=== PATIENT | female | born 1925 | race Caucasian/White ===

== ENCOUNTER 2016-06-25 16:47 | Emergency (ER) | payer OTHER ==
[2016-06-25 16:57] VITALS: RESP 16; TEMP 97.8
[2016-06-25] MEDS ORDERED: CloNIDine Tab 0.1 MG TABLET PO ONE (17:06)
--- NOTE | 2016-06-25 17:10 | PDOC ---
Gen Adult / Medical Screen HPI - General Chief Complaint: General Medical Stated Complaint: hign blood pressure Date Seen by Provider: 06/25/16 Time Seen by Provider: 17:07 Source: POSITIVE: Patient Exam Limitations: POSITIVE: No limitations Nurse's Notes Reviewed & Considered: Yes - Indicators Temperature Between 95 and 101 Degrees: Yes Respirations Between 12 and 20: Yes Blood Pressure Between 100-165 (sys) and 60-100 (caceres): No Pulse Range Between 60-105 (100 for age > 60 years): Yes Severe Pain (Greater than 5/10 Reported): No Chest or Abdominal Pain: No Inability to Walk: No Pt Reports Active High Risk Cond. (TB/Hepatitis/HIV/Chemo): No Abnormal Mental Status: No - History of Present Illness Initial Comments: The patient comes in today worried about prior. The patient took her blood pressure at home and found it to be 209 systolic and came in for further evaluation. She denies any nausea vomiting or diarrhea, no headache, no blurry vision, no sore throat, chest pain shortness of breath, no fever chills or sweats, no hematuria dysuria. Timing: REPORTS: Intermittent Duration: Unknown Similar Symptoms Previously: Yes Recent Care Received: REPORTS: Denies Any Prior Injuries Related to Current Complaint?: No - Patient Home Medications Home Medications: Home Medications Magnesium Sr 7 meq PO QD #90 02/10/12 Ascorbate Calcium [Vitamin C] 1 tab PO QHS #90 tab 11/15/13 Aspirin 81 mg PO QD tab 08/21/15 Ubidecarenone [Co Q-10] 400 mg PO DAILY cap 08/21/15 Furosemide [Lasix] 0.5 - 1 tab ORAL BID #180 tab 10/22/15 Gabapentin 1 cap PO QD #90 cap 10/22/15 Omeprazole 1 cap PO DAILY #90 cap 10/22/15 Pravastatin Sodium [Pravachol] 1 tab PO QHS #90 tab 10/22/15 Quinapril HCl 1 tab PO BID #180 tab 10/22/15 Warfarin Sodium 1.5 tab PO DAILY #135 tab 10/22/15 Cholecalciferol (Vitamin D3) [Vitamin D3] 1 cap PO DAILY cap 04/27/16 Estrogens, Conj Vaginal Cream [Premarin Vaginal Cream] 1 gm VAGINAL DAILY #3 tube 04/27/16 - Patient Allergies Allergies/Adverse Reactions: Allergies Allergy/AdvReac Type Severity Reaction Status Date / Time sulfamethoxazole Allergy Mild Chest Verified 06/25/16 16:49 [From Bactrim] pressure Past Medical History - heen HEENT History: Denies History Additional HEENT History: wears RX glasses, corneal implants Cardiovascular History: Hypertension, CHF, Arrhythmia Additional Cardiovasular History: A FIB/ AND LEFT SIDED HEART FAILURE Respiratory History: Denies History Gastrointestinal History: GERD Genitourinary History: Denies History Additional Genitourinary History: recent UTI Endocrine History: Denies History Musculoskeletal History: Denies History Prosthesis or Implant: No Neurological History: Denies History Blood Disorders: Denies History Psychiatric History: Denies History History of Sexually Transmitted Diseases: No Cancer History: Denies History In Past Year Been Physically Harmed or Verbally Threatened: No History of MDRO: No History of Other Communicable Diseases: No Tobacco Use: Never Smoker Alcohol Use: None Substance Use Type: None Previous Surgical History: Yes Anesthesia Reactions: No Malignant Hyperthermia: No Significant Family History: Heart disease, Cancer ROS - Limitations ROS Limitations: No Limitations Constitution: REPORTS: Denies Symptoms Cardiovascular: REPORTS: Denies Cardiac Symptoms Respiratory: REPORTS: Denies Resp Symptoms Neurological: REPORTS: Denies Neuro Symptoms Gastrointestinal: REPORTS: Denies GI Symptoms Endocrine: REPORTS: Denies Symptoms Musculoskeletal: REPORTS: Denies MS Symptoms Genitourinary: REPORTS: Denies Symptoms Eyes: REPORTS: Denies Symptoms ENT: REPORTS: Denies Symptoms Skin: REPORTS: Denies Skin Symptoms Lympathic: REPORTS: Denies Lympathic Symptoms Immunologic: POSITIVE: Denies Symptoms Psychiatric: POSITIVE: Denies Psych Symptoms Gen Adult/Medical Screen Exam - General Appearance General Appearance: POSITIVE: Alert, Cooperative, No Acute Distress, No Evidence of Trauma - HEENT HEENT: POSITIVE: Head Inspection Nml, Eyes Inspection Nml, Ears Inspection Nml, Nose Inspection Nml, Oral/Dental Inspect. Nml, Pharynx Inspect. Nml, PERRL, EOMI - Pupils Pupil Size: 5 mm: Bilateral - Neck Neck: POSITIVE: Normal Inspection, Thyroid Normal - Respiratory Respiratory: POSITIVE: No Respiratory Distress, Breath Sounds Normal, Chest Non- Tender - Cardiovascular Cardiovascular: POSITIVE: Regular Rate & Rhythm, No Murmur, No Gallop, PMI Normal Peripheral Pulses: Radial (R): 3+, Radial (L): 3+ - Abdomen Abdomen: Soft: (All Quadrants), Normal Bowel Sounds: (All Quadrants), Denies Tenderness: (All Quadrants) - Back Back: POSITIVE: Normal Inspection - Neurological / Psychological Mental Status: POSITIVE: Mood Normal, Affect Normal Orientation: POSITIVE: Oriented x 3 Reflexes: Patellar (R): 3+, Patellar (L): 3+, Radial (R): 3+, Radial (L): 3+ - Skin Skin: POSITIVE: Normal Color, Warm, Dry, No Rash - Extremities Extremity: Non-Tender: (All Extremities), Normal ROM: (All Extremities), Normal Inspection: (All Extremities) Procedures - Laceration/Wound Repair Did patient have a laceration repair: No Gen Adlt/Medical Scrn Progress - Results Reviewed by me Lab Results Reviewed: Yes Lab Results:: Laboratory Results 06/25/16 Range/Units 17:12 WBC 6.19 (4.8-10.8) 10^3/uL RBC 3.70 L (4.20-5.40) 10^6/uL Hgb 12.5 (12.0-16.0) g/dL Hct 36.6 L (37.0-47.0) % MCV 98.9 (81-99) FL MCH 33.8 H (27-31) PG MCHC 34.2 (33-37) g/dL RDW Std Deviation 46.5 (39-50) fL RDW Coeff of Cosme 13.4 (11.5-14.5) % Plt Count 238 (140-350) 10*3/uL MPV 9.1 (7.4-12.2) FL Immature Gran % (Auto) 0.2 (0-5) % Neut % (Auto) 50.1 (50-80) % Lymph % (Auto) 38.1 (10-50) % [place] % (Auto) 8.7 (5-15) % Eos % (Auto) 2.4 (0-8) % Baso % (Auto) 0.5 (0-1) % Immature Gran # (Auto) 0.01 10*3/UL Neut # (Auto) 3.10 10*3/UL Lymph # (Auto) 2.36 10*3/uL [place] # (Auto) 0.54 (0.3-0.8) 10*3/UL Eos # (Auto) 0.15 10*3/UL Baso # (Auto) 0.03 10*3/UL WBC Morphology Comment Normal morphology (NORM) Plt Morphology Comment Normal morphology (NORM) RBC Morph Comment Normal morphology (NORM) PT 26.8 H (9.7-11.4) secs INR 2.55 (0.00-5.90) N/A Sodium 134 L (135-145) meq/L Potassium 4.2 (3.8-5.2) meq/L Chloride 97 L (98-112) meq/L Carbon Dioxide 25 (23-33) meq/L Anion Gap 12 (5-20) BUN 23 H (7-22) mg/dL Creatinine 1.1 (0.50-1.20) mg/dL Estimated GFR (>60 ml/min/1.73m(2)) BUN/Creatinine Ratio 20.90 H (6-20) Glucose 108 (78-110) mg/dL Calculated Osmolality 282.0 (267-292) mOsm/kg Calcium 9.5 (8.7-10.7) mg/dL Magnesium 2.1 (1.6-2.4) mg/dL Total Bilirubin 0.4 (0.3-1.2) mg/dL AST 30 (8-39) IU/L ALT 36 (9-52) IU/L Alkaline Phosphatase 61 (38-126) IU/L Total Protein 7.9 (6.1-8.0) g/dL Albumin 4.6 (3.5-4.8) g/dL Globulin 3.3 (2.50-4.10) g/dL Albumin/Globulin Ratio 1.30 (1.3-2.0) mg/g - Patient's Progress Pain Medication Addressed: POSITIVE: Not Applicable Re-Examine Time: 17:54 Status: POSITIVE: Improved MDM / ED Course: Patient brought to the emergency department, examined, blood drawn and sent to the lab for studies. She received 0.1 mg of clonidine. Laboratory findings: INR shows adequately anticoagulated, remainder of the upper findings are unremarkable. Assessment: Hypertension Plan: Discharge home and follow-up with her primary care physician for evaluation of her medications. - Consult Counseled: POSITIVE: Patient, RE: Lab Results, RE: DX, RE: Need for F/U Patient Care Time - Estimated PCT Patient Care Time (In Minutes): 15 Vital Signs - Recent Vital Signs Vital Signs: Vital Signs (Last 8 hours) Temp Pulse Resp BP Pulse Ox 06/25/16 17:51 182/79 06/25/16 16:52 97.8 F 76 16 225/92 96 - VS Reviewed Vital Signs Reviewed: Yes Discharge Clinical Impression: High blood pressure Discharge Disposition: Discharged to Home Condition: Stable
[2016-06-25 17:19] LABS: BASOPHILS # (AUTO) 0.03 10*3/UL; BASOPHILS % (AUTO) 0.5 % (0-1); EOSINOPHILS % (AUTO) 2.4 % (0-8); HEMATOCRIT 36.6 % (37.0-47.0); HEMOGLOBIN 12.5 g/dL (12.0-16.0); IMM GRAN % (AUTO) 0.2 % (0-5); IMM GRAN# (AUTO) 0.01 10*3/UL; LYMPHOCYTES # (AUTO) 2.36 10*3/uL; LYMPHOCYTES % (AUTO) 38.1 % (10-50); MEAN CORPUSCULAR HEMOGLOBIN 33.8 PG (27-31); MEAN CORPUSCULAR HGB CONC 34.2 g/dL (33-37); MEAN PLATELET VOLUME 9.1 FL (7.4-12.2); MONOCYTES # (AUTO) 0.54 10*3/UL (0.3-0.8); MONOCYTES % (AUTO) 8.7 % (5-15); NEUTROPHILS % (AUTO) 50.1 % (50-80); RDW COEFFICIENT OF VARIATION 13.4 % (11.5-14.5); WHITE BLOOD COUNT 6.19 10^3/uL (4.8-10.8)
[2016-06-25 17:24] LABS: PLATELET MORPHOLOGY COMMENT NORMAL MORPHOLOGY (NORM)
[2016-06-25 17:28] LABS: BILIRUBIN,TOTAL 0.4 mg/dL (0.3-1.2); BUN/CREATININE RATIO 20.9 (6-20); CALCIUM 9.5 mg/dL (8.7-10.7); CREATININE 1.1 mg/dL (0.50-1.20); MAGNESIUM 2.1 mg/dL (1.6-2.4); POTASSIUM 4.2 meq/L (3.8-5.2); TOTAL PROTEIN 7.9 g/dL (6.1-8.0)
[2016-06-25 17:33] LABS: PROTHROMBIN TIME 26.8 secs (9.7-11.4)
[2016-06-25 18:06] LABS: FREE T4 (FREE THYROXINE) 0.93 ng/dL (0.93-1.71)
== END 2016-06-25 18:01 | disposition home or self-care (01) ==
LOC: ER 16:47
DX: I10 Essential (primary) hypertension (principal)
CPT/HCPCS: 80053; 83735; 84439; 84443; 85025; 85610; 99282

== ENCOUNTER → 2016-06-30 | Outpatient (CLI) | payer OTHER | LOC: MMPC 09:00 | PROVIDERS: ATTEND Nurse Practitioner Family | DX: Z79.01 Long term (current) use of anticoagulants (principal); Z51.81 Encounter for therapeutic drug level monitoring; I48.91 Unspecified atrial fibrillation | CPT/HCPCS: 85610 ==

== ENCOUNTER → 2016-07-05 | Outpatient (CLI) | payer OTHER | LOC: MMPC 11:11 | PROVIDERS: ATTEND Nurse Practitioner | DX: B02.9 Zoster without complications (principal); I10 Essential (primary) hypertension | CPT/HCPCS: 99214; G0463 ==

== ENCOUNTER → 2016-07-12 | Outpatient (CLI) | payer OTHER | LOC: MMPC 11:11 | PROVIDERS: ATTEND Nurse Practitioner | DX: I10 Essential (primary) hypertension (principal); B02.9 Zoster without complications | CPT/HCPCS: 99213; G0463 ==

== ENCOUNTER → 2016-07-25 | Outpatient (CLI) | payer OTHER | LOC: MMPC 09:00 | PROVIDERS: ATTEND Nurse Practitioner Family | DX: Z79.01 Long term (current) use of anticoagulants (principal); Z51.81 Encounter for therapeutic drug level monitoring; I48.91 Unspecified atrial fibrillation | CPT/HCPCS: 85610 ==

== ENCOUNTER → 2016-08-01 | Outpatient (CLI) | payer OTHER ==
[2016-08-01 10:52] LABS: BILIRUBIN,URINE NEGATIVE (NEG); CLARITY,URINE CLEAR (CLEAR); GLUCOSE, URINE (UA) NEGATIVE (NEG); LEUKOCYTE ESTERASE ,URINE MODERATE (NEG); NITRATE,URINE NEGATIVE (NEG); OCCULT BLOOD,URINE SMALL (NEG); PH,URINE 5.5 (5.0-8.5); PROTEIN,URINE NEGATIVE (NEG); UROBILINOGEN,URINE 0.2 mg/dL (0.2)
[2016-08-01 10:56] LABS: URINE SAMPLE TYPE CLEAN CATCH URINE
[2016-08-01 10:57] LABS: BACTERIA,URINE MODERATE; WBC,URINE 40-50
== END ==
LOC: LAB 10:37
PROVIDERS: ATTEND Internal Medicine
DX: R31.9 Hematuria, unspecified (principal); R82.99 Other abnormal findings in urine
CPT/HCPCS: 81001; 87088

== ENCOUNTER 2016-08-03 05:23 | Emergency (ER) | payer OTHER ==
[2016-08-03] MEDS ORDERED: Sodium Chloride 0.9% 1,000 ML PRIMARY IV ONE (06:00)
[2016-08-03] MEDS ORDERED: NORMAL SALINE 10 ML SYRINGE FLUSH IVP PRN (06:00)
[2016-08-03 06:08] VITALS: RESP 22; TEMP 97.1
[2016-08-03 06:10] LABS: BASOPHILS # (AUTO) 0.03 10*3/UL; BASOPHILS % (AUTO) 0.5 % (0-1); EOSINOPHILS % (AUTO) 1.4 % (0-8); HEMATOCRIT 38.7 % (37.0-47.0); HEMOGLOBIN 13.4 g/dL (12.0-16.0); IMM GRAN % (AUTO) 0.3 % (0-5); IMM GRAN# (AUTO) 0.02 10*3/UL; LYMPHOCYTES # (AUTO) 1.88 10*3/uL; LYMPHOCYTES % (AUTO) 32.8 % (10-50); MEAN CORPUSCULAR HEMOGLOBIN 33.6 PG (27-31); MEAN CORPUSCULAR HGB CONC 34.6 g/dL (33-37); MEAN PLATELET VOLUME 9.1 FL (7.4-12.2); MONOCYTES # (AUTO) 0.41 10*3/UL (0.3-0.8); MONOCYTES % (AUTO) 7.1 % (5-15); NEUTROPHILS # (AUTO) 3.32 10*3/UL; NEUTROPHILS % (AUTO) 57.9 % (50-80); RDW COEFFICIENT OF VARIATION 13.7 % (11.5-14.5); RED BLOOD COUNT 3.99 10^6/uL (4.20-5.40); WHITE BLOOD COUNT 5.74 10^3/uL (4.8-10.8)
[2016-08-03 06:11] LABS: BILIRUBIN,URINE NEGATIVE (NEG); CLARITY,URINE CLEAR (CLEAR); GLUCOSE, URINE (UA) NEGATIVE (NEG); LEUKOCYTE ESTERASE ,URINE NEGATIVE (NEG); NITRATE,URINE NEGATIVE (NEG); OCCULT BLOOD,URINE SMALL (NEG); PLATELET MORPHOLOGY COMMENT NORMAL MORPHOLOGY (NORM); PROTEIN,URINE NEGATIVE (NEG); UROBILINOGEN,URINE 0.2 EU/dL (0.2)
[2016-08-03 06:14] LABS: URINE SAMPLE TYPE CLEAN CATCH URINE
[2016-08-03 06:17] LABS: RBC,URINE 0-2 /hpf; WBC,URINE 0-1
[2016-08-03 06:18] LABS: PROTHROMBIN TIME 26.7 secs (9.7-11.4)
[2016-08-03 06:21] LABS: ASPARTATE AMINO TRANSFERASE 36 IU/L (8-39); BILIRUBIN,TOTAL 0.9 mg/dL (0.3-1.2); BLOOD UREA NITROGEN 17 mg/dL (7-22); BUN/CREATININE RATIO 18.88 (6-20); CALCIUM 9.3 mg/dL (8.7-10.7); CHLORIDE 96 meq/L (98-112); CREATININE 0.9 mg/dL (0.50-1.20); GLUCOSE 118 mg/dL (78-110); MAGNESIUM 1.9 mg/dL (1.6-2.4); POTASSIUM 4.2 meq/L (3.8-5.2); SODIUM 128 meq/L (135-145); TOTAL PROTEIN 7.9 g/dL (6.1-8.0)
[2016-08-03 06:22] LABS: C-REACTIVE PROTEIN < 0.5 mg/dL (0.0-0.9)
--- NOTE | 2016-08-03 06:27 | EKG ---
[address] [address] Measurements Intervals [place] Rate: 66 P: 66 CT: 192 QRS: 15 QRSD: 96 T: 57 QT: 392 QTc: 405 Interpretive Statements SINUS RHYTHM No previous ECG available for comparison Electronically Signed On 08-03-16 13:59:40 MST by Raphael Cortes [email or web address]
--- NOTE | 2016-08-03 06:35 | PDOC ---
General Adult HPI - General Chief Complaint: General Medical Stated Complaint: "Just don't feel well" Date Seen by Provider: 08/03/16 Time Seen by Provider: 05:25 Source: POSITIVE: Patient Exam Limitations: POSITIVE: No limitations Nurse's Notes Reviewed & Considered: Yes - History of Present Illness Initial Comment: The patient is an 89-year-old female who is brought to the emergency department by ambulance from the [facility] across the street. She states that she woke up early this morning and had a cramp in her left leg. She tried to get up and go to the bathroom to see if this would relieve the cramping in her leg. She subsequently noticed that her heart was racing. She states that she felt weak in general. She subsequently called EMS. When they arrived her heart rate was initially in the 150s however now has come down into the 70s. She denies any associated chest pain, headache, increased numbness or weakness in her extremities. She denies any recent fevers or chills. She just started on an antibiotic for a bladder infection 2 days ago. She does have a history of atrial fibrillation for which she still takes warfarin. Have you received a tetanus shot in the past 10 years?: Yes - Patient Home Medications Home Medications: Home Medications Aspirin 81 mg PO QD tab 08/21/15 Ubidecarenone [Co Q-10] 400 mg PO DAILY cap 08/21/15 Furosemide [Lasix] 0.5 - 1 tab ORAL BID #180 tab 10/22/15 Gabapentin 1 cap PO QD #90 cap 10/22/15 Omeprazole 1 cap PO DAILY #90 cap 10/22/15 Pravastatin Sodium [Pravachol] 1 tab PO QHS #90 tab 10/22/15 Quinapril HCl 1 tab PO BID #180 tab 10/22/15 Warfarin Sodium 1.5 tab PO DAILY #135 tab 10/22/15 Cholecalciferol (Vitamin D3) [Vitamin D3] 1 cap PO DAILY cap 04/27/16 - Patient Allergies Allergies/Adverse Reactions: Allergies Allergy/AdvReac Type Severity Reaction Status Date / Time sulfamethoxazole Allergy Mild Chest Verified 08/03/16 06:17 [From Bactrim] pressure Past Medical History - heen HEENT History: Denies History Additional HEENT History: wears RX glasses, corneal implants Cardiovascular History: Hypertension, CHF, Arrhythmia Additional Cardiovasular History: A FIB/ AND LEFT SIDED HEART FAILURE Respiratory History: Denies History Gastrointestinal History: GERD Genitourinary History: Denies History Additional Genitourinary History: recent UTI Endocrine History: Denies History Musculoskeletal History: Arthritis, Osteoporosis Prosthesis or Implant: No Neurological History: Denies History Blood Disorders: Denies History Psychiatric History: Denies History History of Sexually Transmitted Diseases: No Cancer History: Denies History In Past Year Been Physically Harmed or Verbally Threatened: No History of MDRO: No History of Other Communicable Diseases: No Tobacco Use: Never Smoker Alcohol Use: None Substance Use Type: None Previous Surgical History: Yes Anesthesia Reactions: No Malignant Hyperthermia: No Significant Family History: Heart disease, Cancer Past Medical History Reviewed: Reviewed - No Changes ROS - Limitations ROS Limitations: No Limitations Constitution: DENIES: Chills, Fever Cardiovascular: REPORTS: Heart Racing, Heart Palpitations. DENIES: Chest Pain Respiratory: REPORTS: Denies Resp Symptoms. DENIES: Cough Non Productive, Cough Productive, Shortness Of Breath Neurological: DENIES: Headache, Numbness, Weakness Gastrointestinal: DENIES: Nausea, Vomitting, Diarrhea Endocrine: REPORTS: Fatigue Musculoskeletal: REPORTS: Calf Pain (Left leg pain and cramping) Genitourinary: REPORTS: Other (She was having some burning with urination and was started on antibiotic for urinary tract infection 2 days ago) Eyes: REPORTS: Denies Symptoms ENT: REPORTS: Denies Symptoms Skin: REPORTS: Rash (Recently treated for shingles) General Adult Exam - General Appearance General Appearance: POSITIVE: Alert, Cooperative, No Acute Distress - HEENT HEENT: POSITIVE: Head Inspection Nml, Eyes Inspection Nml, Ears Inspection Nml, Nose Inspection Nml, PERRL, EOMI - Neck Neck: POSITIVE: Normal Inspection. NEGATIVE: Lymphadenopathy - Respiratory Respiratory: POSITIVE: No Respiratory Distress, Breath Sounds Normal - Cardiovascular Cardiovascular: POSITIVE: Regular Rate & Rhythm, No Murmur Peripheral Pulses: Dorsalis-pedis (R): 2+, Dorsalis-pedis (L): 2+ - Abdomen Abdomen: Soft: (All Quadrants), Denies Tenderness: (All Quadrants) - Back Back: POSITIVE: Normal Inspection, CVA Tenderness (Mild right-sided CVA tenderness) - Skin Skin: POSITIVE: Normal Color - Extremities Extremity: Normal ROM: (All Extremities), Normal Inspection: (All Extremities) - Neurological / Psychological Neurological: POSITIVE: Oriented X3, Other (No focal neurologic deficit) General Adult Progress - Results Reviewed by me Lab Results Reviewed: Yes Lab Results:: Laboratory Results 08/03/16 Range/Units 06:07 WBC 5.74 (4.8-10.8) 10^3/uL RBC 3.99 L (4.20-5.40) 10^6/uL Hgb 13.4 (12.0-16.0) g/dL Hct 38.7 (37.0-47.0) % MCV 97.0 (81-99) FL MCH 33.6 H (27-31) PG MCHC 34.6 (33-37) g/dL RDW Std Deviation 47.2 (39-50) fL RDW Coeff of Cosme 13.7 (11.5-14.5) % Plt Count 236 (140-350) 10*3/uL MPV 9.1 (7.4-12.2) FL Immature Gran % (Auto) 0.3 (0-5) % Neut % (Auto) 57.9 (50-80) % Lymph % (Auto) 32.8 (10-50) % [place] % (Auto) 7.1 (5-15) % Eos % (Auto) 1.4 (0-8) % Baso % (Auto) 0.5 (0-1) % Immature Gran # (Auto) 0.02 10*3/UL Neut # (Auto) 3.32 10*3/UL Lymph # (Auto) 1.88 10*3/uL [place] # (Auto) 0.41 (0.3-0.8) 10*3/UL Eos # (Auto) 0.08 10*3/UL Baso # (Auto) 0.03 10*3/UL WBC Morphology Comment Normal morphology (NORM) Plt Morphology Comment Normal morphology (NORM) RBC Morph Comment Normal morphology (NORM) PT 26.7 H (9.7-11.4) secs INR 2.54 (0.00-5.90) N/A Sodium 128 L (135-145) meq/L Potassium 4.2 (3.8-5.2) meq/L Chloride 96 L (98-112) meq/L Carbon Dioxide 19 L (23-33) meq/L Anion Gap 13 (5-20) BUN 17 (7-22) mg/dL Creatinine 0.9 (0.50-1.20) mg/dL Estimated GFR (>60 ml/min/1.73m(2)) BUN/Creatinine Ratio 18.88 (6-20) Glucose 118 H (78-110) mg/dL Calculated Osmolality 268.0 (267-292) mOsm/kg Calcium 9.3 (8.7-10.7) mg/dL Magnesium 1.9 (1.6-2.4) mg/dL Total Bilirubin 0.9 (0.3-1.2) mg/dL AST 36 (8-39) IU/L ALT 32 (9-52) IU/L Alkaline Phosphatase 67 (38-126) IU/L Troponin I < 0.012 (< 0.040) ng/mL C-Reactive Protein < 0.5 (0.0-0.9) mg/dL Total Protein 7.9 (6.1-8.0) g/dL Albumin 4.5 (3.5-4.8) g/dL Globulin 3.4 (2.50-4.10) g/dL Albumin/Globulin Ratio 1.30 (1.3-2.0) mg/g Ur Collection Type Clean catch urine Urine Color Yellow Urine Clarity Clear (CLEAR) Urine pH 7.0 (5.0-8.5) Ur Specific [place] 1.010 (1.005-1.030) Urine Protein Negative (NEG) mg/dl Urine Glucose (UA) Negative (NEG) mg/dL Urine Ketones Negative (NEG) Urine Occult Blood Small H (NEG) Urine Nitrate Negative (NEG) Urine Bilirubin Negative (NEG) Urine Urobilinogen 0.2 (0.2) EU/dL Ur Leukocyte Esterase Negative (NEG) Urine RBC 0-2 (NONE) /hpf Urine WBC 0-1 (NONE) Ur Squamous Epith Cells None (NONE) Ur Renal Epithelial Cell None (NONE) Urine Crystals None Urine Bacteria None (NONE) Urine Casts None (NONE) Urine Mucus None (NONE) Urine Trichomonas None (NONE) Urine Yeast None (NONE) Ur Culture Indicated? Culture not set EKG Interpreted/Reviewed By Me:: Yes EKG Interpretation:: POSITIVE: Normal Sinus Rhythm, Normal Rate, Normal Intervals, Normal [place], Normal QRS, Normal ST/T - Patient's Progress MDM / ED Course: By the time the patient arrived here in the emergency room her heart rate at come down into the 60s and 70s. Her EKG here shows a normal sinus rhythm. She does have a history of paroxysmal atrial fibrillation. Her blood work is all essentially unremarkable except for mild hyponatremia. Her urinalysis at this time appears to be clear. Her symptoms were likely associated with rapid heartbeat from atrial fibrillation however this seems to have resolved. She is advised to finish her antibiotic course for the treatment of her UTI. She will continue her regular medications as previously prescribed. She is advised return to the emergency room if any worsening or change in symptoms. She is advised follow-up with Dr. Byrne next week. - Consult Counseled: POSITIVE: Patient, RE: Lab Results, RE: DX, RE: Need for F/U Patient Care Time - Estimated PCT Patient Care Time (In Minutes): 25 Vital Signs - Recent Vital Signs Vital Signs: Vital Signs (Last 8 hours) Temp Pulse Resp BP Pulse Ox 08/03/16 05:23 97.1 F 84 22 152/88 97 - VS Reviewed Vital Signs Reviewed: Yes Discharge Clinical Impression: Muscle cramp, Atrial fibrillation Condition: Stable Additional Instructions: Your heart rate which was fast when EMS first arrived in the 150s has come back down to a normal level. Your blood work was all normal except for a slightly low sodium which is likely related to the furosemide that you take. At this point I would recommend finishing the antibiotic prescribed by Dr. Byrne for you in the urinary tract infection. Continue your regular medications as previously prescribed. Return to the emergency room if any worsening or change in symptoms. Recommend follow-up with Dr. Byrne next week. Follow Up With: NONE,NONE [Primary Care Provider] -
== END 2016-08-03 07:05 | disposition home or self-care (01) ==
LOC: ER 05:23
DX: R25.2 Cramp and spasm (principal); I48.91 Unspecified atrial fibrillation; R53.1 Weakness; Z79.01 Long term (current) use of anticoagulants
CPT/HCPCS: 80053; 81001; 81003; 83735; 84484; 85025; 85610; 86140; 93005; 93010; 99283; J7030

== ENCOUNTER → 2016-08-10 | Outpatient (CLI) | payer OTHER ==
[2016-08-10 11:46] LABS: CALCIUM 9.5 mg/dL (8.7-10.7); POTASSIUM 4.7 meq/L (3.8-5.2)
== END ==
LOC: MOB LAB 09:13
PROVIDERS: ATTEND Internal Medicine
DX: E87.1 Hypo-osmolality and hyponatremia (principal); I10 Essential (primary) hypertension
CPT/HCPCS: 36415; 80048

== ENCOUNTER → 2016-08-22 | Outpatient (CLI) | payer OTHER | LOC: MMPC 09:00 | PROVIDERS: ATTEND Internal Medicine | DX: Z79.01 Long term (current) use of anticoagulants (principal); Z51.81 Encounter for therapeutic drug level monitoring; I48.91 Unspecified atrial fibrillation | CPT/HCPCS: 85610 ==

== ENCOUNTER → 2016-09-22 | Outpatient (CLI) | payer OTHER | LOC: MMPC 09:00 | PROVIDERS: ATTEND Internal Medicine | DX: Z79.01 Long term (current) use of anticoagulants (principal); Z51.81 Encounter for therapeutic drug level monitoring; I48.91 Unspecified atrial fibrillation | CPT/HCPCS: 85610 ==

== ENCOUNTER → 2016-10-20 | Outpatient (CLI) | payer OTHER | LOC: MMPC 09:00 | PROVIDERS: ATTEND Internal Medicine | DX: Z79.01 Long term (current) use of anticoagulants (principal); Z51.81 Encounter for therapeutic drug level monitoring; I48.91 Unspecified atrial fibrillation | CPT/HCPCS: 85610 ==

== ENCOUNTER → 2016-10-23 | Outpatient (CLI) | payer OTHER ==
[2016-10-23 09:43] LABS: CHOL/HDL RATIO 2.2 RATIO (0-4.0); LDL CHOLESTEROL,CALCULATED 71.2 mg/dL; SERUM ALBUMIN 4.5 g/dL (3.5-4.8)
== END ==
LOC: LAB 08:38
PROVIDERS: ATTEND Internal Medicine
DX: E78.5 Hyperlipidemia, unspecified (principal); I48.91 Unspecified atrial fibrillation; I10 Essential (primary) hypertension
CPT/HCPCS: 36415; 80053; 80061; 82550; 84443

== ENCOUNTER → 2016-10-24 | Outpatient (CLI) | payer OTHER | LOC: MMPC 11:11 | PROVIDERS: ATTEND Internal Medicine | DX: I48.91 Unspecified atrial fibrillation (principal); E78.5 Hyperlipidemia, unspecified; K22.70 Barrett's esophagus without dysplasia; I10 Essential (primary) hypertension; R14.0 Abdominal distension (gaseous); Z80.0 Family history of malignant neoplasm of digestive organs | CPT/HCPCS: 99214; G0463 ==

== ENCOUNTER → 2016-11-17 | Outpatient (CLI) | payer OTHER | LOC: MMPC 09:00 | PROVIDERS: ATTEND Internal Medicine | DX: Z79.01 Long term (current) use of anticoagulants (principal); Z51.81 Encounter for therapeutic drug level monitoring; I48.91 Unspecified atrial fibrillation | CPT/HCPCS: 85610 ==

== ENCOUNTER → 2016-12-15 | Outpatient (CLI) | payer OTHER | LOC: MMPC 09:00 | PROVIDERS: ATTEND Internal Medicine | DX: Z79.01 Long term (current) use of anticoagulants (principal); Z51.81 Encounter for therapeutic drug level monitoring; I48.91 Unspecified atrial fibrillation | CPT/HCPCS: 85610 ==

== ENCOUNTER → 2017-01-12 | Outpatient (CLI) | payer OTHER | LOC: MMPC 09:00 | PROVIDERS: ATTEND Internal Medicine | DX: Z79.01 Long term (current) use of anticoagulants (principal); Z51.81 Encounter for therapeutic drug level monitoring; I48.91 Unspecified atrial fibrillation | CPT/HCPCS: 85610 ==